=== PATIENT | female | born 1970 | race Caucasian/White ===

== ENCOUNTER 2018-09-01 17:27 | Emergency (ER) | payer OTHER ==
[~2018-09-01] VITALS: Wt 82.2 kg
[2018-09-01] MEDS ORDERED: ONDANSETRON (ODT) 4 MG TAB ODT STA (19:16)
[2018-09-01] MEDS ORDERED: ONDA8TAB14 PO (19:51)
[2018-09-01 20:18] VITALS: BP 145/76; PULSE 87; RESP 20
--- NOTE | 2018-09-01 20:41 | ERD ---
ER Documentation Chief Complaint Chief Complaint NAUSEA AND VOMITING SINCE THURSDAY HPI 48-year-old female presents with complaint of nausea vomiting since Thursday. Patient states that she has been tolerating p.o. but has had many episodes of vomiting. Not vomitus described as nonbilious nonbloody. Patient denies any fevers, diarrhea, constipation, dysuria, hematuria, abdominal pain, flank pain, sick contacts. ROS All systems reviewed and are negative except as per history of present illness. Medications Home Meds Active Scripts Ondansetron (Ondansetron Odt) 8 Mg Tab.rapdis, 8 MG PO Q6H PRN for NAUSEA AND/OR VOMITING, #10 TAB Prov:DAVID MARSH 09/01/18 Allergies Allergies: Coded Allergies: No Known Allergy (Unverified , 09/01/18) PMhx/Soc History of Surgery: Yes (appendectomy, Tubal ligation) Anesthesia Reaction: No Hx Neurological Disorder: No Hx Respiratory Disorders: No Hx Cardiac Disorders: Yes (HTN) Hx Psychiatric Problems: No Hx Miscellaneous Medical Probl: No Hx Alcohol Use: No Hx Substance Use: No Hx Tobacco Use: No Smoking Status: Never smoker FmHx Family History: No diabetes, No coronary disease, No other Physical Exam Vitals Vital Signs Date Temp Pulse Resp B/P (MAP) Pulse Ox O2 O2 Flow FiO2 Time Delivery Rate 09/01/18 98.7 87 20 145/76 100 Room Air 20:18 (99) 09/01/18 99.5 92 18 161/90 99 17:31 (113) Physical Exam Const: No acute distress Head: Atraumatic Eyes: Normal Conjunctiva ENT: Normal External Ears, Nose and Mouth. Neck: Full range of motion. No meningismus. Resp: Clear to auscultation bilaterally Cardio: Regular rate and rhythm, no murmurs Abd: Soft, non tender, non distended. Normal bowel sounds. Negative McBurney's. Negative Alfonso's. Skin: No petechiae or rashes Back: No midline or flank tenderness Ext: No cyanosis, or edema Neur: Awake and alert Psych: Normal Mood and Affect Results 24 hrs Laboratory Tests Test 09/01/18 19:26 09/01/18 19:31 Urine Color STRAW Urine Clarity CLEAR Urine pH 8.0 Urine Specific Cement 1.003 Urine Ketones NEGATIVE mg/dL Urine Nitrite NEGATIVE mg/dL Urine Bilirubin NEGATIVE mg/dL Urine Urobilinogen NEGATIVE mg/dL Urine Leukocyte Esterase NEGATIVE Donya/ul Urine Hemoglobin NEGATIVE mg/dL Urine Glucose NEGATIVE mg/dL Urine Total Protein NEGATIVE mg/dl POC Beta HCG, Qualitative NEGATIVE Current Medications Medications Dose Sig/Marlo Start Time Status Last (Trade) Ordered Route PRN Stop Time Admin Dose Reason Admin Ondansetron 4 mg ONCE STAT 09/01/18 DC 09/01/18 HCl (Zofran ODT 19:16 19:27 Odt) 09/01/18 19:18 Procedures/MDM MDM: Patient's abdominal exam is a normal limits no tenderness palpation and patient has not had any fevers or complaints of abdominal pain. I have low suspicion for acute coronary syndrome, AAA, mesenteric ischemia, lower lobe pneumonia, DKA, bowel perforation, cholecystitis, choledocholithiasis, ascending cholangitis, hepatic abscess, pancreatitis, PUD, splenic rupture, diverticulitis, pyelonephritis, nephrolithiasis, appendicitis, , [, ectopic , PID, ovarian torsion or tubo-ovarian abscess]. At this time, patient is stable for discharge and outpatient management. I have instructed the patient to follow-up with his/her primary care physician in 1-2 days. I have discussed with the patient the possibility of needing to see a specialist for further workup and imaging studies if symptoms persist. I have instructed the patient to promptly return to the ER for any new or worsening symptoms including but not limited to increased pain, fever, nausea, vomiting, weakness or LOC. The patient and/or family expressed understanding of and agreement with this plan. All questions were answered. Home care instructions were provided. Communication with patient both during the exam and instructions for discharge were performed with using a cad draftsman . Patient gave verbal confirmation to the practitioner, through the cad draftsman, that they understood everything that was being said to them. DISCLAIMER: Inadvertent spelling and grammatical errors are likely due to EHR/dictation software use and do not reflect on the overall quality of patient care. Also, please note that the electronic time recorded on this note does not necessarily reflect the actual time of the patient encounter. Departure Diagnosis: Primary Impression: Vomiting Condition: Stable Patient Instructions: Vomiting (6Y-Adult) Additional Instructions: FOLLOW UP WITH YOUR PRIMARY CARE PHYSICIAN TOMORROW.Return to this facility if you are not improving as expected. DAVID MARSH Sep 01, 2018 20:41
== END 2018-09-01 20:20 | disposition home or self-care (01) ==
LOC: FTE 17:27
DX: I10 Essential (primary) hypertension (principal)
CPT/HCPCS: 81003; 81025; 99283

== ENCOUNTER 2018-10-03 12:13 | Emergency (ER) | payer OTHER ==
[~2018-10-03] VITALS: Ht 172.7 cm; Wt 85.0 kg
[~2018-10-03 12:13] MED LIST: ONDA8TAB14 PO
[2018-10-03 12:15] VITALS: Ht 172.7 cm; Wt 85.0 kg
[2018-10-03] MEDS ORDERED: KETOROLAC 30 MG INJ IM STA (12:43)
[2018-10-03] MEDS ORDERED: IBUP-1542 PO (13:03)
[2018-10-03] MEDS ORDERED: BACL10TA PO (13:03)
--- NOTE | 2018-10-03 13:10 | ERD ---
ER Documentation Chief Complaint Chief Complaint Lower back pain radiates to bilat lower ext x3days HPI Patient is a 48-year-old female, past medical history of hypertension, presents to the ER for concerns of lower back pain for last 3 days. Patient denies cough,. Patient denies any saddle anesthesia, urine incontinence or stool incontinence. Patient states the pain is localized to the right lower back and radiates down her right lower leg. 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 Patient denies any fevers, chills, nausea, vomiting. Patient denies any urinary symptoms. Patient denies abdominal pain. Denies any chest pain, shortness of breath or LOC. ROS All systems reviewed and are negative except as per history of present illness. Medications Home Meds Active Scripts Ibuprofen* (Motrin*) 600 Mg Tab, 600 MG PO Q6, #30 TAB Prov:VEE STACY PA-C 10/03/18 Baclofen* (Baclofen*) 10 Mg Tablet, 10 MG PO Q8, #20 TAB Prov:VEE STACY PA-C 10/03/18 Ondansetron (Ondansetron Odt) 8 Mg Tab.rapdis, 8 MG PO Q6H PRN for NAUSEA AND/OR VOMITING, #10 TAB Prov:DAVID MARSH 09/01/18 Allergies Allergies: Coded Allergies: No Known Allergy (Unverified , 09/01/18) PMhx/Soc History of Surgery: Yes (appendectomy, Tubal ligation) Anesthesia Reaction: No Hx Neurological Disorder: No Hx Respiratory Disorders: No Hx Cardiac Disorders: Yes (HTN) Hx Psychiatric Problems: No Hx Miscellaneous Medical Probl: No Hx Alcohol Use: No Hx Substance Use: No Hx Tobacco Use: Yes Smoking Status: Current some day smoker FmHx Family History: No diabetes Physical Exam Vitals Vital Signs Date Temp Pulse Resp B/P (MAP) Pulse Ox O2 O2 Flow FiO2 Time Delivery Rate 10/03/18 99.1 84 20 148/77 97 12:15 (100) Physical Exam GENERAL: Well-developed, well-nourished female. Appears in no acute distress. HEAD: Normocephalic, atraumatic. EYES: Pupils are equally reactive bilaterally. EOMs grossly intact. No conjunctival erythema. NECK: Supple. No meningismus. Normal range of motion of the neck. LUNG: Clear to auscultation bilaterally. No rhonchi, wheezing, rales or coarse breath sounds. HEART: Regular rate and rhythm. No murmurs, rubs or gallops. ABDOMEN: No pulsatile masses. Soft, nontender, and nondistended. Positive bowel sounds in all four quadrants. No rebound tenderness, no guarding. (-) McBurney's point tenderness. No CVA tenderness. BACK: No midline tenderness. Tender to palpation of right lumbar paraspinal muscles. Positive straight leg raise noted to right leg. EXTREMITIES: Equal pulses bilaterally. No peripheral clubbing, cyanosis or edema. No unilateral leg swelling. NEUROLOGIC: Alert and oriented. Moving all four extremities without any difficulty. Normal speech. Steady gait. SKIN: Normal color. Warm and dry. No rashes or lesions. Results 24 hrs Laboratory Tests Test 10/03/18 12:55 POC Beta HCG, Qualitative NEGATIVE Current Medications Medications Dose Sig/Marlo Start Time Status Last (Trade) Ordered Route PRN Stop Time Admin Dose Reason Admin Ketorolac 30 mg ONCE STAT 10/03/18 DC 10/03/18 Tromethamine IM 12:43 12:57 (Toradol) 10/03/18 12:44 Procedures/MDM MEDICAL DECISION MAKING: This is a 48-year-old female presents ER for concerns of right-sided lower back pain radiating down her right leg x3 days. ED i.e. report shows that this is the patient's 24th visit to the emergency department last year. Vital signs were reviewed. Patient was afebrile. Patient denied any saddle anesthesia, urinary incontinence, bowel incontinence, night pain or recent trauma. Urine test was negative. Patient was given Toradol. Patient will be discharged home with prescription for baclofen and ibuprofen. Patient advised not to take back pain when driving or operating any machinery. At this time the patient presentation is most consistent with sciatica. Low suspicion for cauda equine syndrome, spinal fractures, epidural abscess, spinal metastases, osteomyelitis, aortic dissection, ruptured or leaking AA, DJD, pyelonephritis or nephrolithiasis. PRESCRIPTIONS: Ibuprofen Baclofen DISCHARGE: At this time, patient is stable for discharge and outpatient management. RICE therapy and ROM exercises were advised to avoid stiffness. I have instructed the patient to follow-up with his/her primary care physician in 1-2 days. I have discussed with the patient the possibility of needing to see an diesel engine specialist for further workup and imaging if the pain persists. I have ins tructed the patient to promptly return to the ER for any new or worsening symptoms including increased pain, swelling, warmth, urinary incontinence, stool incontinence, weakness or numbness. The patient and/or family expressed understanding of and agreement with this plan. All questions were answered. Home care instructions were provided. Disclaimer: Inadvertent spelling and grammatical errors are likely due to EHR/dictation software use and do not reflect on the overall quality of patient care. Also, please note that the electronic time recorded on this note does not necessarily reflect the actual time of the patient encounter. Departure Diagnosis: Primary Impression: Back pain Back pain location: back pain in unspecified location Chronicity: unspecified Back pain laterality: unspecified Qualified Codes: M54.9 - Dorsalgia, unspecified Condition: Fair Patient Instructions: Back Pain W/ Sciatica Referrals: [facility] YOU HAVE RECEIVED A MEDICAL SCREENING EXAM AND THE RESULTS INDICATE THAT YOU DO NOT HAVE A CONDITION THAT REQUIRES URGENT TREATMENT IN THE EMERGENCY DEPARTMENT. FURTHER EVALUATION AND TREATMENT OF YOUR CONDITION CAN WAIT UNTIL YOU ARE SEEN IN YOUR DOCTORS OFFICE WITHIN THE NEXT 1-2 DAYS. IT IS YOUR RESPONSIBILITY TO MAKE AN APPOINTMENT FOR FOLOW-UP CARE. IF YOU HAVE A PRIMARY DOCTOR --you should call your primary doctor and schedule an appointment IF YOU DO NOT HAVE A PRIMARY DOCTOR YOU CAN CALL OUR PHYSICIAN REFERRAL HOTLINE AT IF YOU CAN NOT AFFORD TO SEE A PHYSICIAN YOU CAN CHOSE FROM THE FOLLOWING [facility] [address] [facility] [address] [facility] [facility] [address] [facility] [address] [facility]. [facility] [address] [facility]. [facility]. [address] [facility]. [facility] YOU HAVE RECEIVED A MEDICAL SCREENING EXAM AND THE RESULTS INDICATE THAT YOU DO NOT HAVE A CONDITION THAT REQUIRES URGENT TREATMENT IN THE EMERGENCY DEPARTMENT. FURTHER EVALUATION AND TREATMENT OF YOUR CONDITION CAN WAIT UNTIL YOU ARE SEEN IN YOUR DOCTORS OFFICE WITHIN THE NEXT 1-2 DAYS. IT IS YOUR RESPONSIBILITY TO MAKE AN APPOINTMENT FOR FOLOW-UP CARE. IF YOU HAVE A PRIMARY DOCTOR --you should call your primary doctor and schedule and appointment IF YOU DO NOT HAVE A PRIMARY DOCTOR YOU CAN CALL OUR PHYSICIAN REFERRAL HOTLINE AT . IF YOU CAN NOT AFFORD TO SEE A PHYSICIAN YOU CAN CHOSE FROM THE FOLLOWING [facility]: [facility] [address] [place] [address] [facility] [address] [place] [address] [facility] + [facility] [address] [place] [address] Additional Instructions: Call your primary care doctor TOMORROW for an appointment during the next 1-2 days.See the doctor sooner or return here if your condition worsens before your appointment time. VEE STACY PA-C Oct 03, 2018 13:10
[2018-10-03 13:35] VITALS: BP 135/74; PULSE 79; RESP 20
== END 2018-10-03 13:39 | disposition home or self-care (01) ==
LOC: FTE 12:13
DX: M54.5 Low back pain (principal); F17.210 Nicotine dependence, cigarettes, uncomplicated; I10 Essential (primary) hypertension
CPT/HCPCS: 81025; 96372; 99284; J1885

== ENCOUNTER 2018-10-14 09:54 | Emergency (ER) | payer OTHER ==
[~2018-10-14] VITALS: Ht 165.1 cm; Wt 83.2 kg
[~2018-10-14 09:54] MED LIST changes: +BACL10TA PO; +IBUP-1542 PO
[2018-10-14 09:58] VITALS: Ht 165.1 cm; Wt 83.2 kg
[2018-10-14] MEDS ORDERED: SOD CHLORIDE 0.9% 1,000 ML IV STA (10:05)
[2018-10-14] MEDS ORDERED: ONDANSETRON 4 MG INJ IV STA (10:05)
[2018-10-14] MEDS ORDERED: KETOROLAC 15 MG INJ IV STA (10:05)
--- NOTE | 2018-10-14 13:30 | ERD ---
ER Documentation Chief Complaint Chief Complaint RIGHT FLANK PAIN WITH FEVER FOR 3 DAYS; NO N/V/D HPI This is a 48-year-old female with a past medical history of hypertension, previous appendectomy, previous bilateral tubal ligation who is presenting with 3 days of waxing and waning fever, chills, generalized body aches, right upper quadrant and right flank pain without alleviating or exacerbating factors. The patient does not believe it is associated with eating. The patient does not endorse any nausea or vomiting. She denies any constipation or diarrhea. She has not had any black or bloody or tarry stools. She denies dysuria or hematuria or urgency or frequency. The patient denies feeling sick recently. The patient denies fever or chills. The patient has had no headache or vision changes. The patient does not endorse neck or back pain. The patient denies lightheadedness or dizziness. The patient has had no chest pain or trouble breathing. The patient has had no focal deficits. The patient has had no weakness or numbness or tingling to the face or extremities. ROS All systems reviewed and are negative except as per history of present illness. Medications Home Meds Active Scripts Ibuprofen* (Motrin*) 600 Mg Tab, 600 MG PO Q6, #30 TAB Prov:VEE STACY PA-C 10/03/18 Ondansetron (Ondansetron Odt) 8 Mg Tab.rapdis, 8 MG PO Q6H PRN for NAUSEA AND/OR VOMITING, #10 TAB Prov:DAVID MARSH 09/01/18 Discontinued Scripts Baclofen* (Baclofen*) 10 Mg Tablet, 10 MG PO Q8, #20 TAB Prov:VEE STACY PA-C 10/03/18 Allergies Allergies: Coded Allergies: No Known Allergy (Unverified , 10/14/18) PMhx/Soc History of Surgery: Yes (appendectomy, Tubal ligation) Anesthesia Reaction: No Hx Neurological Disorder: No Hx Respiratory Disorders: No Hx Cardiac Disorders: Yes (HTN) Hx Psychiatric Problems: No Hx Miscellaneous Medical Probl: No Hx Alcohol Use: No Hx Substance Use: No Hx Tobacco Use: Yes Smoking Status: Current some day smoker FmHx Family History: No diabetes Physical Exam Vitals Vital Signs Date Temp Pulse Resp B/P (MAP) Pulse Ox O2 O2 Flow FiO2 Time Delivery Rate 10/14/18 100.2 103 20 181/99 100 09:58 (126) Physical Exam Const: No apparent distress, well-developed, well-nourished Head: Normocephalic, Atraumatic Eyes: Normal Conjunctiva. ENT: Normal External Ears, Nose and Mouth. Neck: Full range of motion. No meningismus. Resp: Clear to auscultation bilaterally, No wheezes, rales or rhonchi Cardio: Regular rate and rhythm. No murmurs, rubs or gallops Abd: Soft, non distended. Mild right upper quadrant tenderness. No rebound or guarding. Normal bowel sounds Skin: No petechiae or rashes Back: No midline tenderness. No CVA tenderness Ext: No cyanosis, or edema Neur: Awake and alert, oriented 4. Cranial nerves intact. No facial droop. Normal strength, sensation and coordination. Psych: Normal Mood and Affect Result Diagram: 10/14/18 1020 10/14/18 1020 Results 24 hrs Laboratory Tests Test 10/14/18 10:17 10/14/18 10:20 Bedside Urine pH (LAB) 7.0 Bedside Urine Protein (LAB) 1+ Bedside Urine Glucose (UA) Negative Bedside Urine Ketones (LAB) Negative Bedside Urine Blood Trace-intact Bedside Urine Nitrite (LAB) Negative Bedside Urine Leukocyte Esterase (L Trace White Blood Count 11.5 10^3/ul Red Blood Count 3.91 10^6/ul Hemoglobin 9.5 g/dl Hematocrit 31.7 % Mean Corpuscular Volume 81.1 fl Mean Corpuscular Hemoglobin 24.3 pg Mean Corpuscular Hemoglobin Concent 30.0 g/dl Red Cell Distribution Width 17.7 % Platelet Count 480 10^3/UL Mean Platelet Volume 9.0 fl Immature Granulocytes % 0.500 % Neutrophils % 80.9 % Lymphocytes % 9.0 % Monocytes % 7.6 % Eosinophils % 0.6 % Basophils % 1.4 % Nucleated Red Blood Cells % 0.0 /100WBC Immature Granulocytes # 0.060 10^3/ul Neutrophils # 9.3 10^3/ul Lymphocytes # 1.0 10^3/ul Monocytes # 0.9 10^3/ul Eosinophils # 0.1 10^3/ul Basophils # 0.2 10^3/ul Nucleated Red Blood Cells # 0.0 10^3/ul Urine Color YELLOW Urine Clarity CLEAR Urine pH 7.0 Urine Specific [place] 1.014 Urine Ketones NEGATIVE mg/dL Urine Nitrite NEGATIVE mg/dL Urine Bilirubin NEGATIVE mg/dL Urine Urobilinogen NEGATIVE mg/dL Urine Leukocyte Esterase NEGATIVE Donya/ul Urine Hemoglobin NEGATIVE mg/dL Urine Glucose NEGATIVE mg/dL Urine Total Protein NEGATIVE mg/dl Sodium Level 140 mmol/L Potassium Level 4.0 mmol/L Chloride Level 103 mmol/L Carbon Dioxide Level 29 mmol/L Anion Gap 8 Blood Urea Nitrogen 9 mg/dl Creatinine 0.64 mg/dl Est Glomerular Filtrat Rate mL/min > 60 mL/min Glucose Level 90 mg/dl Calcium Level 9.3 mg/dl Total Bilirubin 0.5 mg/dl Direct Bilirubin 0.00 mg/dl Indirect Bilirubin 0.5 mg/dl Aspartate Amino Transf (AST/SGOT) 19 IU/L Alanine Aminotransferase (ALT/SGPT) 14 IU/L Alkaline Phosphatase 59 IU/L Total Protein 7.9 g/dl Albumin 4.4 g/dl Globulin 3.50 g/dl Albumin/Globulin Ratio 1.25 Lipase 82 U/L POC Beta HCG, Qualitative NEGATIVE Current Medications Medications Dose Sig/Marlo Start Time Status Last (Trade) Ordered Route PRN Stop Time Admin Dose Reason Admin Sodium 1,000 ml @ Q1H STAT 10/14/18 DC 10/14/18 Chloride 1,000 mls/hr IV 10:05 10/14/18 10:29 11:04 Ondansetron 4 mg ONCE STAT 10/14/18 DC 10/14/18 HCl (Zofran IV 10:05 10/14/18 10:29 Inj) 10:07 Ketorolac 15 mg ONCE STAT 10/14/18 DC 10/14/18 Tromethamine IV 10:05 10/14/18 10:29 (Toradol) 10:07 Procedures/MDM MDM The patient's presentation warrants further investigation. Previous medical records, if available, were reviewed. LABS The patient's laboratory testing was obtained and reviewed. No emergent treatment was required unless described below. CBC: Leukocytosis, potentially reactive, but also potentially concerning for infection. Normocytic anemia, not emergent. Thrombocytosis, likely reactive. Chemistry: No E/o severe acidosis or alkalosis or renal failure or liver disease or diabetic ketoacidosis Lipase: No E/o pancreatitis Urine: No E/o acute infection or hematuria hCG: Negative IMAGING Imaging and Radiology interpretation reviewed. Ultrasound right upper quadrant FINDINGS: The liver demonstrates normal echogenicity. The liver is normal in size and no focal solid lesions are seen. The liver measures 15.8 cm in length. The portal vein is patent with normal direction of flow. No intrahepatic biliary dilatation is seen. There is a 1.7 cm calcified stone within the gallbladder. There is no pericholecystic fluid or gallbladder wall thickening. The common bile duct measures 5.7 mm in maximal dimension. The visualized portions of the pancreas are unremarkable. The tail of the pancreas is not seen. No free fluid is identified. The right kidney is normal in size, and demonstrate normal echogenicity and cortical thickness. The right kidney pramod ures 11.8 cm in long dimension. There is mild right-sided hydronephrosis. There are no kidney stones. IMPRESSION: Single 1.7 cm calcified stone within the gallbladder. Mild right- sided hydronephrosis. Electronically viewed and signed by .Boy Jackson MD, MD on 10/14/2018 12:59 TREATMENT/DISPOSITION The patient presents for fever, chills with associated right upper quadrant abdominal tenderness as well as right-sided flank tenderness. The patient does have a gallstone, but there is no evidence of cholecystitis. Biliary colic is possible. There is no evidence of obstructive cholestatic disease. I have decreased suspicion for choledocholithiasis. Given the patient's right-sided flank pain, I was concerned about the possibility of nephrolithiasis. There is mild right-sided hydronephrosis, but there is no hematuria or evidence of infection. The patient could have had a recently passed stone. Without hematuria, though, I have decreased suspicion for nephrolithiasis. I do not feel the patient requires CT imaging at this time. The patient may follow-up in an outpatient setting. The patient does not have any evidence of peritonitis. The patient does not have clinical symptoms concerning for mesenteric ischemia or ischemic colitis. The patient does not have any epigastric pain. I have low suspicion for gastritis, PUD or GERD. The patient does not have left upper quadrant tenderness. I have low suspicion for pancreatitis. The patient does not have any right lower quadrant tenderness, or periumbilical tenderness. I have low suspicion for appendicitis. The patient does not have suprapubic tenderness. I have decreased suspicion for cystitis. The patient does not have any left lower quadrant tenderness, and I have low suspicion for diverticulosis or diverticulitis. The patient does not have any palpable pulsatile mass or severe abdominal pain radiating to the back. I have low suspicion for aortic aneurysm, dissection or rupture. The patient has no lactic acidosis. I do not see evidence of endorgan damage. The patient is not septic and does not require a full septic work-up. DISCHARGE Upon reevaluation of the patient, symptoms have improved. No emergent diagnoses were identified. At this time, I feel that the patient stable for discharge. The patient was instructed to follow-up with a primary care physician in 1-3 days. The patient will be given strict precautions with which to return to the emergency department. Prescriptions: Ibuprofen The patient's blood pressure was elevated at greater than 120/80 while in the emergency department. The patient was otherwise stable with no evidence of hypertensive urgency or emergency. The patient does not require admission for blood pressure control. I have discussed with the patient the risks of hypertension. I have instructed the patient to return to the ER for any new or worsening symptoms including chest pain, shortness of breath, headache, blurred vision, confusion, nausea, vomiting or LOC. I have advised the patient to follow up with the primary care physician for outpatient monitoring and treatment for hypertension in 1-3 days. DISCLAIMER Inadvertent spelling and grammatical errors are likely due to EHR/dictation software use and do not reflect on the overall quality of patient care. Note that the electronic time recorded on this note does not necessarily reflect the actual time of the patient encounter. Departure Diagnosis: Primary Impression: Biliary colic Additional Impressions: Flank pain Right upper quadrant abdominal pain Cholelithiasis Cholelithiasis location: gallbladder Cholecystitis presence: without cholecystitis Biliary obstruction: without biliary obstruction Qualified Codes: K80.20 - Calculus of gallbladder without cholecystitis without obstruction Hydronephrosis Hydronephrosis type: unspecified Qualified Codes: N13.30 - Unspecified hydronephrosis Leukocytosis Leukocytosis type: unspecified Qualified Codes: D72.829 - Elevated white blood cell count, unspecified Normocytic anemia Thrombocytosis Condition: Stable Patient Instructions: Flank Pain, Uncertain Cause, Hydronephrosis Adult, Gallstones Additional Instructions: Thank you for for coming to [facility] for your care today. Pl ease ask your nurse or provider if you have questions about your care today and do not leave until all your questions have been answered. Please use any medications given as directed and follow-up with your doctor (or the doctor you were referred to) in the next 1-3 days. If you do not have a primary care doctor you may follow up at the [facility] or [facility] clinic (listed below). You may also use motrin and tylenol as needed for fever and/or pain unless instructed otherwise by your provider or nurse. Indications for more urgent follow-up have been discussed, but you may return to the Emergency Department at ANY time for any worrisome or worsening symptoms. If you have abdominal pain, please know that no test or exam you received is perfect and you should follow up within 8 hours for continued pain. If you had any imaging studies today, such as an X-Ray or CT Scan, these studies will be reviewed later by a radiologist. You will be called if there are important findings that were not identified today, so make sure the contact information you provided at registration is correct. If you received any narcotic pain control medicine today, such as Vicodin, Morphine or Dilaudid, your coordination and judgment may be affected for a number of hours. Please do not drive or operate heavy machinery, and you may want someone to assist you at home. If you were given a prescription for narcotic medication, be aware that it is very addictive- use sparingly and only if necessary. PLEASE SEEK FURTHER EVALUATION AND MANAGEMENT AT YOUR DOCTORS OFFICE WITHIN THE NEXT 1-3 DAYS. IT IS YOUR RESPONSIBILITY TO MAKE AN APPOINTMENT FOR FOLOW-UP CARE. IF YOU HAVE A PRIMARY DOCTOR, PLEASE CALL THEIR OFFICE TO SCHEDULE AN APPOINTMENT FOR FOLLOW UP. IF YOU DO NOT HAVE A PRIMARY DOCTOR YOU CAN CALL OUR PHYSICIAN REFERRAL HOTLINE AT IF YOU CAN NOT AFFORD TO SEE A PHYSICIAN YOU CAN CHOSE FROM THE FOLLOWING FORMERLY [facility] & [facility] CLINICS: [facility] [address] [facility] [address] [facility] [address] [facility] [address] [facility] [address] [facility] [facility]. [address] ALONA FENG MD Oct 14, 2018 13:26
[2018-10-14 14:00] VITALS: BP 120/78; PULSE 78; RESP 17
== END 2018-10-14 15:18 | disposition home or self-care (01) ==
LOC: E/R 09:54
DX: K80.50 Calculus of bile duct without cholangitis or cholecystitis without obstruction (principal); K80.20 Calculus of gallbladder without cholecystitis without obstruction; N13.30 Unspecified hydronephrosis; D72.829 Elevated white blood cell count, unspecified; D64.9 Anemia, unspecified; D47.3 Essential (hemorrhagic) thrombocythemia; F17.210 Nicotine dependence, cigarettes, uncomplicated; I10 Essential (primary) hypertension
CPT/HCPCS: 36415; 76705; 80053; 81003; 81025; 83690; 85025; 96374; 96375; 99285; J1885; J2405; J7030

== ENCOUNTER 2019-01-04 17:51 | Emergency (ER) | payer OTHER ==
[~2019-01-04] VITALS: Wt 78.0 kg
[~2019-01-04 17:51] MED LIST changes: -BACL10TA PO; +CEPH-443 PO
[2019-01-04 17:56] VITALS: BP 137/74; PULSE 74; RESP 18
== END 2019-01-04 18:09 | disposition home or self-care (01) ==
LOC: E/R 17:51
DX: T81.49XA Infection following a procedure, other surgical site, initial encounter (principal); I10 Essential (primary) hypertension; Y82.8 Other medical devices associated with adverse incidents; Z87.891 Personal history of nicotine dependence
CPT/HCPCS: 99283